=== PATIENT | male | born 1995 | race African-American/Black ===

== ENCOUNTER 2019-12-10 16:45 | Emergency (ER) | payer OTHER ==
[~2019-12-10] VITALS: Ht 172.7 cm; Wt 63.5 kg
[2019-12-10] MEDS ORDERED: NORCO 5-325 TA1 EAC2 PO (18:02)
[2019-12-10 18:16] VITALS: BP 124/74
== END 2019-12-10 18:16 | disposition home or self-care (01) ==
LOC: ER 16:45
DX: S42.031A Displaced fracture of lateral end of right clavicle, initial encounter for closed fracture (principal); S00.81XA Abrasion of other part of head, initial encounter; S40.212A Abrasion of left shoulder, initial encounter; S50.811A Abrasion of right forearm, initial encounter; M54.2 Cervicalgia; V49.9XXA Car occupant (driver) (passenger) injured in unspecified traffic accident, initial encounter; Y93.89 Activity, other specified; Y92.89 Other specified places as the place of occurrence of the external cause; Y99.8 Other external cause status